=== PATIENT | male | born 1975 | race Caucasian/White ===

== ENCOUNTER 2016-06-21 07:55 | Emergency (ER) | payer OTHER ==
[2016-06-21 08:05] VITALS: RESP 15; TEMP 98.8
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
--- NOTE | 2016-06-21 08:53 | XR ---
EXAMINATION TYPE: XR shoulder complete LT DATE OF EXAM: 06/21/2016 8:46 AM CLINICAL HISTORY: Injury with pain TECHNIQUE: Three views of the left shoulder are obtained. COMPARISON: None. FINDINGS: There is no acute fracture/dislocation evident in the left shoulder. The acromioclavicula r and glenohumeral joint spaces appear within normal limits. Suspect subacute or chronic left anterol ateral fourth rib fracture with cortical prominence noted. IMPRESSION: There is no acute fracture or dislocation in the left shoulder.
--- NOTE | 2016-06-21 08:54 | XR ---
EXAMINATION TYPE: XR Hip LT and AP Pelvis DATE OF EXAM: 06/21/2016 8:46 AM COMPARISON: NONE HISTORY: Injury with pain TECHNIQUE: A single AP view of the pelvis is obtained. Two views of the left hip are obtained. FINDINGS: There is no acute fracture/dislocation evident in the pelvis. The hip and sacroiliac join ts appear symmetric and unremarkable. The overlying soft tissue appears unremarkable. Two views of left hip show no acute fracture or dislocation. No focal lytic or sclerotic lesion seen in the proximal left femur. The overlying soft tissue is unremarkable. IMPRESSION: There is no acute fracture or dislocation in the pelvis or left hip.
[2016-06-21] MEDS ORDERED: IBUPROFEN 600 MG STARTER PACK 4 TAB BTL PO STA (09:00)
[2016-06-21 09:09] VITALS: BP 156/92; PULSE 102
== END 2016-06-21 09:41 | disposition home or self-care (01) ==
LOC: EC 07:55
DX: S49.92XA Unspecified injury of left shoulder and upper arm, initial encounter (principal); F17.200 Nicotine dependence, unspecified, uncomplicated; S70.02XA Contusion of left hip, initial encounter; Y30.XXXA Falling, jumping or pushed from a high place, undetermined intent, initial encounter; Y93.89 Activity, other specified; Y92.812 Truck as the place of occurrence of the external cause; Y99.0 Civilian activity done for income or pay
CPT/HCPCS: 73502; 99284